=== PATIENT | female | born 1970 | race Caucasian/White ===

== ENCOUNTER → 2020-08-26 | Outpatient (CLI) | payer BC | END | disposition home or self-care (01) | LOC: LABWHC1 16:50 | PROVIDERS: ATTEND Family Medicine | DX: Z20.828 Contact with and (suspected) exposure to other viral communicable diseases (principal) | CPT/HCPCS: U0003; C9803 ==

== ENCOUNTER 2020-09-30 18:29 | Emergency (ER) | payer BC ==
[2020-09-30 18:36] VITALS: TEMP 98.4
--- NOTE | 2020-09-30 18:45 | ED ---
Wound/Laceration HPI - General Chief Complaint: Wound/Laceration Stated Complaint: Finger laceration Time Seen by Provider: 09/30/20 18:44 Source: patient Mode of arrival: ambulatory Limitations: no limitations - History of Present Illness Initial Comments: 49-year-old male presenting to emergency Department with a chief complaint of laceration. States this occurred about one hour prior to arrival she was cutting ham with a knife. Patient states she lacerated with a clean knife. She reports minimal pain. Has full range of motion of finger. Patient states her tetanus up-to-date. Denies numbness or tingling. - Related Data Home Medications Medication Instructions Recorded Confirmed No Known Home Medications 09/30/20 09/30/20 Allergies Allergy/AdvReac Type Severity Reaction Status Date / Time lidocaine Allergy Rash/Hives Verified 09/30/20 18:36 Review of Systems ROS Statement: Those systems with pertinent positive or pertinent negative responses have been documented in the HPI. ROS Other: All systems not noted in ROS Statement are negative. Past Medical History Past Medical History: No Reported History History of Any Multi-Drug Resistant Organisms: None Reported Past Surgical History: Orthopedic Surgery Past Psychological History: No Psychological Hx Reported Smoking Status: Never smoker Past Alcohol Use History: Occasional Past Drug Use History: None Reported General Exam Limitations: no limitations General appearance: alert, in no apparent distress Head exam: Present: atraumatic, normocephalic, normal inspection Eye exam: Present: normal appearance Pupils: Present: normal accommodation ENT exam: Present: normal exam Neck exam: Present: normal inspection, full ROM Respiratory exam: Present: normal lung sounds bilaterally. Absent: respiratory distress, wheezes Cardiovascular Exam: Present: regular rate, normal rhythm, normal heart sounds Extremities exam: Present: normal inspection (Small laceration on the left third digit. Measuring less than 3 mm. They're superficial), full ROM, normal capillary refill. Absent: tenderness, pedal edema, joint swelling Back exam: Present: normal inspection, full ROM. Absent: tenderness, CVA tenderness (R), CVA tenderness (L) Neurological exam: Present: alert, oriented X3, normal gait Psychiatric exam: Present: normal affect, normal mood Skin exam: Present: warm, dry, intact, normal color Course Vital Signs 09/30/20 09/30/20 18:33 19:22 Temperature 98.4 F Pulse Rate 117 H 102 H Respiratory 18 16 Rate Blood Pressure 167/99 151/96 O2 Sat by Pulse 97 100 Oximetry Medical Decision Making - Medical Decision Making 49-year-old female presenting to emergency department with laceration. Laceration site was very superficial and small. Steri-Strips were applied. Return parameters discussed with patient. Patient given laceration instructions. Tetanus was up-to-date. Disposition Clinical Impression: Laceration Disposition: HOME SELF-CARE Condition: Stable Instructions (If sedation given, give patient instructions): Laceration (DC) Additional Instructions: Follow wound care instructions. Return to emergency department if symptoms worsen. Is patient prescribed a controlled substance at d/c from ED?: No Referrals: Connor Plaza MD [Primary Care Provider] - 1-2 days Time of Disposition: 18:55
[2020-09-30] MEDS ORDERED: DIPH,PERTUS(ACELL)TETVAC-LF 0.5 ML VIAL IM ONE (18:54)
[2020-09-30 19:23] VITALS: BP 151/96; PULSE 102; RESP 16
== END 2020-09-30 19:24 | disposition home or self-care (01) ==
LOC: EC 18:29
DX: S61.213A Laceration without foreign body of left middle finger without damage to nail, initial encounter (principal); Z23 Encounter for immunization; Z88.4 Allergy status to anesthetic agent; W26.0XXA Contact with knife, initial encounter; Y93.G3 Activity, cooking and baking; Y92.000 Kitchen of unspecified non-institutional (private) residence as the place of occurrence of the external cause
CPT/HCPCS: 90471; 90715; 99282

== ENCOUNTER 2020-12-29 09:59 | Emergency (ER) | payer BC ==
[2020-12-29 10:26] VITALS: BP 164/111; PULSE 100; RESP 18; TEMP 98.2
[2020-12-29] MEDS ORDERED: TOPICAL SKIN ADHESIVE 1 EACH AMP TOPICAL ONE (10:46)
[2020-12-29] MEDS ORDERED: LIDOCAINE/EPINEPHR/TETRACAINE 5 ML BOTTLE TOPICAL ONE (10:46)
[2020-12-29] MEDS ORDERED: BACITRACIN OINT 1 EACH PACKET TOPICAL ONE (10:49)
--- NOTE | 2020-12-29 11:05 | ED ---
Wound/Laceration HPI - General Chief Complaint: Wound/Laceration Stated Complaint: Face Lac Time Seen by Provider: 12/29/20 10:33 Source: patient Mode of arrival: ambulatory Limitations: no limitations - History of Present Illness Initial Comments: Patient is a 50-year-old female presenting to the emergency Department with complaints of a laceration to her right cheek. Patient states she was trying to get a steel stake out of her garden about 2 hours prior to arrival and it slipped and hit the right side of her cheek. She states it did break her g lasses. She is up-to-date with her tetanus vaccine. Bleeding is controlled at this time, she is not on blood thinners. There are no further complaints at this time. - Related Data Home Medications Medication Instructions Recorded Confirmed No Known Home Medications 09/30/20 09/30/20 Allergies Allergy/AdvReac Type Severity Reaction Status Date / Time lidocaine Allergy Rash/Hives Verified 12/29/20 10:22 Review of Systems ROS Statement: Those systems with pertinent positive or pertinent negative responses have been documented in the HPI. ROS Other: All systems not noted in ROS Statement are negative. Past Medical History Past Medical History: No Reported History History of Any Multi-Drug Resistant Organisms: None Reported Past Surgical History: Orthopedic Surgery Past Psychological History: No Psychological Hx Reported Smoking Status: Never smoker Past Alcohol Use History: Occasional Past Drug Use History: None Reported General Exam - General Exam Comments Initial Comments: GENERAL: Patient is well-developed and well-nourished. Patient is nontoxic and in no acute distress. HEAD: Atraumatic, normocephalic. EYES: Pupils equal round and reactive to light, extraocular movements intact, sclera anicteric, conjunctiva are normal. Eyelids were unremarkable. ENT: Nares patent, oropharynx clear without exudates. Moist mucous membranes. NECK: Normal range of motion, supple without lymphadenopathy or JVD. LUNGS: Unlabored respirations. Breath sounds clear to auscultation bilaterally and equal. No wheezes rales or rhonchi. HEART: Regular rate and rhythm without murmurs, rubs or gallops. ABDOMEN: Soft, nontender, normoactive bowel sounds. No guarding, no rebound. No masses appreciated. : Deferred MUSCULOSKELETAL: Normal extremities with adequate strength and normal range of motion, no pitting or edema. No clubbing or cyanosis. NEUROLOGICAL: Patient is alert and oriented x 3. Motor and sensory are also intact. Cranial nerves II through XII grossly intact. Symmetrical smile. Normal speech, normal gait. PSYCH: Normal mood, normal affect. SKIN: Warm, Dry, normal turgor, no rashes. Patient has a 2 cm, backward C-shaped laceration on her right cheek, this is superficial, only the bottom portion is requiring sutures. Limitations: no limitations Course Vital Signs 12/29/20 10:22 Temperature 98.2 F Pulse Rate 100 Respiratory 18 Rate Blood Pressure 164/111 O2 Sat by Pulse 99 Oximetry Procedures - Laceration Laceration #1 Consent Obtained: verbal consent Indication: laceration Site: face (Right cheek) Size (cm): 2 Description: irregular (C-shaped) Depth: simple, single layer Pre-repair: irrigated extensively Type of Sutures: nylon Size of Sutures: 6-0 Number of Sutures: 2 Technique: simple, interrupted Patient Tolerated Procedure: well Additional Comments: Topical let was applied to the area prior to procedure. 2 sutures were placed on the bottom of the wound, the rest of the wound was closed topical skin adhesive. Patient tolerated procedure well. Medical Decision Making - Medical Decision Making Patient is a 50-year-old female here after injuring her right cheek pulling a steak out of her garden. She had a 2 cm seasick laceration on the right cheek. The bottom portion did require 2, 6-0 sutures. She tolerated procedure very well. Wound was closed with topical skin adhesive. We did discuss wound care. She'll have sutures removed in 5-7 days. Patient is stable for discharge. Patient is in agreement with this plan of care. Return parameters were discussed with the patient and they verbalized understanding. Case discussed with Dr. Guerra. Disposition Clinical Impression: Laceration of right cheek Disposition: HOME SELF-CARE Condition: Stable Instructions (If sedation given, give patient instructions): Care For Your Stitches (ED) Additional Instructions: Please return to the Emergency Department if symptoms worsen or any other concerns. May wash face as normal with soap and water. Stitches need to be removed in 5-7 days as discussed. Is patient prescribed a controlled substance at d/c from ED?: No Referrals: Connor Plaza MD [Primary Care Provider] - 1-2 days Time of Disposition: 11:36
== END 2020-12-29 11:45 | disposition home or self-care (01) ==
LOC: EC 09:59
DX: S01.411A Laceration without foreign body of right cheek and temporomandibular area, initial encounter (principal); W01.198A Fall on same level from slipping, tripping and stumbling with subsequent striking against other object, initial encounter
CPT/HCPCS: 12011; 99283

== ENCOUNTER → 2021-11-09 | Outpatient (CLI) | payer BC ==
--- NOTE | 2021-11-09 16:44 | US ---
EXAMINATION TYPE: US kidneys/renal and bladder DATE OF EXAM: 11/09/2021 COMPARISON: NONE CLINICAL HISTORY: 51-year-old female N28.9 DISORDER OF KIDNEY AND URETER, UNSPECIFIED. Patient states a kidney mass was found on a recent MRI at [facility] TECHNIQUE: Multiple sonographic images of the kidneys and bladder. FINDINGS: EXAM MEASUREMENTS: Right Kidney: 9.9 x 4.0 x 4.4 cm Left Kidney: 10.0 x 4.7 x 4.9 cm Right Kidney: wnl. No hydronephrosis. Left Kidney: 1.9 x 1.9 x 1.3cm cyst mid to lower pole there is no hydronephrosis. Bladder: wnl Bilateral Jets seen: yes IMPRESSION: Incidental benign 1.9 cm cyst mid to lower left kidney. No hydronephrosis on either side.
== END | disposition home or self-care (01) ==
LOC: RADUSWWP 14:53
PROVIDERS: ATTEND Family Medicine
DX: N28.9 Disorder of kidney and ureter, unspecified (principal)
CPT/HCPCS: 76770

== ENCOUNTER 2022-09-19 20:34 | Emergency (ER) | payer BC ==
[2022-09-19 20:42] VITALS: RESP 16
[2022-09-19 22:43] VITALS: TEMP 98.4
--- NOTE | 2022-09-19 22:45 | ED ---
Female Urogenital HPI - General Source: patient, RN notes reviewed Mode of arrival: ambulatory Limitations: no limitations - History of Present Illness Last Menstrual Period: 09/13/22 <Crystal Peñaloza - Last Filed: 09/20/22 00:03> <Bernard Whitman - Last Filed: 09/20/22 01:29> - General Chief complaint: Vaginal Bleeding Stated complaint: Vaginal bleeding Time Seen by Provider: 09/19/22 22:27 - History of Present Illness Initial comments: Patient is a 51-year-old female presenting to the emergency room with complaints of concerns regarding excessive vaginal bleeding of her current menstrual cycle which began on September 13 of this month with clot passage. She reports that over the past few months she has had cycles every couple of weeks and prior to that there was approximately 8 months where she did not have a cycle. She reports that over the last 2 days at her high points of bleeding she was going through approximately 3 pads in an hour but reports that this flow waxes and wanes. She denies any consistent bleeding of excess of 3 pads an hour. She is unsure of the process of her female relatives premenopausal process in denies any known history of uterine fibroids. She does follow with [facility] for annual visits and is due for her annual visit with Dr. Joselyn fraser. She reports that her last Pap smear was normal. She does complain of some abdominal cramping which she is taking Motrin for occasionally for pain in addition to her vaginal bleeding. She denies any other complaints or concerns at this time including any chest pain, shortness of breath, palpitations, abdominal pain not related to pelvic cramping, nausea, vomiting, weakness, fevers or chills. She denies any significant past medical history. (Crystal Peñaloza) - Related Data Home Medications Medication Instructions Recorded Confirmed No Known Home Medications 09/30/20 09/30/20 Allergies Allergy/AdvReac Type Severity Reaction Status Date / Time lidocaine Allergy Rash/Hives Verified 09/19/22 20:42 Review of Systems ROS Other: All systems not noted in ROS Statement are negative. <Crystal Peñaloza - Last Filed: 09/20/22 00:03> ROS Other: All systems not noted in ROS Statement are negative. <Bernard Whitman - Last Filed: 09/20/22 01:29> ROS Statement: Those systems with pertinent positive or pertinent negative responses have been documented in the HPI. Past Medical History Past Medical History: No Reported History History of Any Multi-Drug Resistant Organisms: None Reported Past Surgical History: Orthopedic Surgery Past Psychological History: No Psychological Hx Reported Smoking Status: Never smoker Past Alcohol Use History: Occasional Past Drug Use History: None Reported <Crystal Peñaloza - Last Filed: 09/20/22 00:03> General Exam Limitations: no limitations <Crystal Peñaloza - Last Filed: 09/20/22 00:03> - General Exam Comments Initial Comments: GENERAL: No acute distress, well developed, well nourished. HEENT: Normocephalic, atraumatic. Pupils equal, round, reactive to light. Moist mucous membranes. Full range of motion neck. LUNGS: Clear to auscultation, no adventitious sounds, no use of accessory muscles. HEART: Regular rate and rhythm without murmur, rub, or gallop. ABDOMEN: Normal bowel sounds. Soft, non-tender, non-distended. DERMATOLOGIC: Skin intact, without rashes or lesions noted. EXTREMITIES: No edema. No tenderness. Moves all extremities. NEUROLOGIC: Alert & oriented x 3. CN II-XII grossly intact. PSYCHIATRIC: Normal affect and behavior. (Crystal Peñaloza) Course Vital Signs 09/19/22 09/19/22 20:39 22:42 Temperature 98.0 F 98.4 F Pulse Rate 104 H 98 Respiratory 16 16 Rate Blood Pressure 156/94 O2 Sat by Pulse 98 99 Oximetry Medical Decision Making - Lab Data Result diagrams: 09/19/22 22:43 09/19/22 22:43 <Crystal Peñaloza - Last Filed: 09/20/22 00:03> - Lab Data Result diagrams: 09/19/22 22:43 09/19/22 22:43 <Bernard Whitman - Last Filed: 09/20/22 01:29> - Medical Decision Making Was pt. sent in by a medical professional or institution? @ No Did you speak to anyone other than the patient for history? @ No Did you review nursing and triage notes? @ Yes reviewed; symptoms consistent with nursing and triage note. Were old charts reviewed? @ -None Differential Diagnosis? @ -Differential Vaginal Bleeding: Spontaneous , threatened , molar , ectopic , bloody show, incompetent cervix, abruptioplacenta, placenta previa, uterine rupture, dysfunctional uterine bleeding, hemorrhage, uterine fibroids, this is not meant to be an all-inclusive list. EKG interpreted by me (3pts min.)? @ -None X-rays interpreted by me (1pt min.)? @ -None CT interpreted by me (1pt min.)? @ -None U/S interpreted by me (1pt. min.)? @ -Pending What testing was considered but not performed? (CT, X-rays, U/S, labs)? Why? @Pelvic exam deferred ultrasound ordered. What meds were considered but not given? Why? @ -Methoprogesterone considered and not given due to duration of bleeding, amount of bleeding and stable hemoglobin status. Did you discuss the management of the patient with other professionals? @ - No Did you reconcile home meds? @ - No Was smoking cessation discussed for >3mins.? @ -Not applicable Was critical care preformed (if so, how long)? @ - No Were there social determinants of health that impacted care today? How? (Homelessness, low income, unemployed, alcoholism, drug addiction, transportation, low edu. Level, literacy, decrease access to med. care, [facility], rehab)? @ -No Was there de-escalation of care discussed even if they declined? (Discuss DNR or withdrawal of care, Hospice)? @ -No What co-morbidities impacted this encounter? (DM, HTN, Smoking, COPD, CAD, Cancer, CVA, Hep., AIDS, mental health diagnosis, sleep apnea, morbid obesity)? @ -None Was patient admitted / discharged? @ -51-year-old female presenting to the emergency room with heavy menstrual cycle bleeding consistent with perimenopause she has had menstrual cycles approximately every 3 weeks for the last 3 months with heavier bleeding and clots at times prior to these events she had 8 months of no menstrual cycles. She is established with [facility] with no significant history of uterine fibroids. She is unsure of familial perimenopausal process. No severe bleeding correlation to intercourse or concerns for STDs. Will obtain CBC, BMP along with urine and urinalysis. No knowledge regarding perimenopausal process and her menstrual cycles is a concern consequently a vaginal ultrasound will be completed for further evaluation will defer pelvic exam. No indication for further diagnostic imaging or laboratory studies. CBC unremarkable. BMP stable. Not . No indication for transfusion or IV hydration. Awaiting urinalysis and pelvic ultrasound. Case transferred to Dr. Whitman for ultrasound and urinalysis result along with dispo. Undiagnosed new problem with uncertain prognosis? @ -None Drug Therapy requiring intensive monitoring for toxicity (Heparin, Nitro, Insulin, Cardizem)? @ -No Were any procedures done? @ -No Diagnosis/symptom? @ -Menometrorhagia Acute, or Chronic, or Acute on Chronic? @ -Acute Uncomplicated (without systemic symptoms) or Complicated (systemic symptoms)? @ -Uncomplicated Side effects of treatment? @ -None Exacerbation, Progression, or Severe Exacerbation] @ -No Poses a threat to life or bodily function? @ -No Case discussed with Dr. Whitman. (Crystal Peñaloza) I did assume care of the patient pending the results of the ultrasound. Ultrasound was obtained and was interpreted by myself showing no abnormal pathology. The urinalysis did show blood and was likely not infected at this time as the patient had large amount of blood. The patient continued to remain stable with a likely diagnosis of dysmenorrhea. The patient was told to follow- up with her [facility] as previously scheduled in 2 weeks. The patient was advised report back to the emergency department if she any worsening shortness of breath, lightheadedness or bleeding. The patient was agreeable to this however questions were answered. The patient was discharged home in stable condition with her . (Bernard Whitman) - Lab Data Lab Results 09/19/22 09/19/22 09/19/22 Range/Units 00:15 22:43 22:43 WBC 6.5 (3.8-10.6) k/uL RBC 4.14 (3.80-5.40) m/uL Hgb 13.8 (11.4-16.0) gm/dL Hct 39.7 (34.0-46.0) % MCV 96.0 (80.0-100.0) fL MCH 33.4 (25.0-35.0) pg MCHC 34.8 (31.0-37.0) g/dL RDW 11.7 (11.5-15.5) % Plt Count 222 (150-450) k/uL MPV 8.7 Neutrophils % 54 % Lymphocytes % 35 % Monocytes % 6 % Eosinophils % 3 % Basophils % 1 % Neutrophils # 3.5 (1.3-7.7) k/uL Lymphocytes # 2.3 (1.0-4.8) k/uL Monocytes # 0.4 (0-1.0) k/uL Eosinophils # 0.2 (0-0.7) k/uL Basophils # 0.1 (0-0.2) k/uL Sodium 140 (137-145) mmol/L Potassium 3.8 (3.5-5.1) mmol/L Chloride 107 (98-107) mmol/L Carbon Dioxide 27 (22-30) mmol/L Anion Gap 6 mmol/L BUN 19 H (7-17) mg/dL Creatinine 0.73 (0.52-1.04) mg/dL Est GFR (CKD-EPI)AfAm >90 (>60 ml/min/1.73 sqM) Est GFR (CKD-EPI)NonAf >90 (>60 ml/min/1.73 sqM) Glucose 96 (74-99) mg/dL Calcium 9.2 (8.4-10.2) mg/dL Urine Color Light Red Urine Appearance Clear (Clear) Urine pH 5.5 (5.0-8.0) Ur Specific Vance 1.020 (1.001-1.035) Urine Protein Trace H (Negative) Urine Glucose (UA) Negative (Negative) Urine Ketones Negative (Negative) Urine Blood Large H (Negative) Urine Nitrite Negative (Negative) Urine Bilirubin Negative (Negative) Urine Urobilinogen <2.0 (<2.0) mg/dL Ur Leukocyte Esterase Trace H (Negative) Urine RBC >182 H (0-5) /hpf Urine WBC 170 H (0-5) /hpf Urine Mucus Rare H (None) /hpf Urine HCG, Qual (Not Detectd) 09/19/22 Range/Units 22:47 WBC (3.8-10.6) k/uL RBC (3.80-5.40) m/uL Hgb (11.4-16.0) gm/dL Hct (34.0-46.0) % MCV (80.0-100.0) fL MCH (25.0-35.0) pg MCHC (31.0-37.0) g/dL RDW (11.5-15.5) % Plt Count (150-450) k/uL MPV Neutrophils % % Lymphocytes % % Monocytes % % Eosinophils % % Basophils % % Neutrophils # (1.3-7.7) k/uL Lymphocytes # (1.0-4.8) k/uL Monocytes # (0-1.0) k/uL Eosinophils # (0-0.7) k/uL Basophils # (0-0.2) k/uL Sodium (137-145) mmol/L Potassium (3.5-5.1) mmol/L Chloride (98-107) mmol/L Carbon Dioxide (22-30) mmol/L Anion Gap mmol/L BUN (7-17) mg/dL Creatinine (0.52-1.04) mg/dL Est GFR (CKD-EPI)AfAm (>60 ml/min/1.73 sqM) Est GFR (CKD-EPI)NonAf (>60 ml/min/1.73 sqM) Glucose (74-99) mg/dL Calcium (8.4-10.2) mg/dL Urine Color Urine Appearance (Clear) Urine pH (5.0-8.0) Ur Specific Vance (1.001-1.035) Urine Protein (Negative) Urine Glucose (UA) (Negative) Urine Ketones (Negative) Urine Blood (Negative) Urine Nitrite (Negative) Urine Bilirubin (Negative) Urine Urobilinogen (<2.0) mg/dL Ur Leukocyte Esterase (Negative) Urine RBC (0-5) /hpf Urine WBC (0-5) /hpf Urine Mucus (None) /hpf Urine HCG, Qual Not Detected (Not Detectd) Disposition <Crystal Peñaloza - Last Filed: 09/20/22 00:03> Is patient prescribed a controlled substance at d/c from ED?: No Time of Disposition: 01:00 <Bernard Whitman - Last Filed: 09/20/22 01:29> Clinical Impression: Dysfunctional uterine bleeding Disposition: HOME SELF-CARE Condition: Stable Instructions (If sedation given, give patient instructions): Dysmenorrhea (ED) Referrals: Connor Plaza MD [Primary Care Provider] - 1-2 days
[2022-09-19 22:56] LABS: Basophils # (A) 0.1 k/uL (0-0.2); Basophils % (A) 1 %; Eosinophils # (A) 0.2 k/uL (0-0.7); Eosinophils % (A) 3 %; HCT 39.7 % (34.0-46.0); HGB 13.8 gm/dL (11.4-16.0); Lymphocytes # (A) 2.3 k/uL (1.0-4.8); Lymphocytes % (A) 35 %; MCH 33.4 pg (25.0-35.0); MCHC 34.8 g/dL (31.0-37.0); Mean Platelet Volume 8.7; Monocytes # (A) 0.4 k/uL (0-1.0); Monocytes % (A) 6 %; Neutrophils # (A) 3.5 k/uL (1.3-7.7); Neutrophils % (A) 54 %; Platelet Count 222 k/uL (150-450); RBC 4.14 m/uL (3.80-5.40); RDW 11.7 % (11.5-15.5); WBC 6.5 k/uL (3.8-10.6)
[2022-09-19 23:05] LABS: African American GFR (CKD) >90 (>60 ml/min/1.73 sqM); Anion Gap 6 mmol/L; Blood Urea Nitrogen 19 mg/dL (7-17); Calcium 9.2 mg/dL (8.4-10.2); Carbon Dioxide 27 mmol/L (22-30); Chloride 107 mmol/L (98-107); Glucose 96 mg/dL (74-99); Non-African American GFR(CKD) >90 (>60 ml/min/1.73 sqM); Potassium 3.8 mmol/L (3.5-5.1); Sodium 140 mmol/L (137-145)
--- NOTE | 2022-09-20 00:23 | US ---
EXAMINATION TYPE: US pelvic complete DATE OF EXAM: 09/20/2022 COMPARISON: NONE CLINICAL HISTORY: Abnormal uterine bleeding. Heavy vaginal bleeding x 6 days. TECHNIQUE: . Transabdominal sonographic images of the pelvis were acquired. Date of LMP: 09/13/22 EXAM MEASUREMENTS: Uterus: 9.8 x 5.3 x 4.7 cm Endometrial Stripe: 1.0 cm Right Ovary: 3.3 x 5.6 x 2.4 cm Left Ovary: 2.5 x 1.8 x 1.4 cm 1. Uterus: Anteverted Hypoechoic area seen on the right side of uterus measuring 2.6 x 2.0 x .17cm , probable fibroid 2. Endometrium: wnl 3. Right Ovary: Cyst seen measuring 2.6 x 2.1 x 1.6cm 4. Left Ovary: wnl Spectral, color and waveform doppler imaging shows good arterial and venous flow within the ovaries ; there is no evidence for ovarian torsion. 5. Bilateral Adnexa: wnl 6. Posterior cul-de-sac: wnl IMPRESSION: There is simple right ovarian cyst. No solid adnexal mass. No evidence of ovarian torsion. No endomet rial mass. There is likely 2.6 x 1.7 cm posterior wall uterine fibroid.
[2022-09-20 00:50] LABS: Appearance,Urine Clear (Clear); Bilirubin,Urine Negative (Negative); Blood,Urine Large (Negative); Color,Urine Light Red; Glucose,Urine (UA) Negative (Negative); Ketones,Urine Negative (Negative); Leukocyte Esterase,Urine Trace (Negative); Mucus,Urine Rare /hpf; Nitrite,Urine Negative (Negative); PH, Urine 5.5 (5.0-8.0); Protein,Urine Trace (Negative); RBC,Urine >182 /hpf (0-5); Urobilinogen,Urine <2.0 mg/dL (<2.0); WBC,Urine 170 /hpf (0-5)
[2022-09-20 01:43] VITALS: BP 121/80; PULSE 78
== END 2022-09-20 01:43 | disposition home or self-care (01) ==
LOC: EC 20:34
DX: N93.8 Other specified abnormal uterine and vaginal bleeding (principal); Z88.4 Allergy status to anesthetic agent
CPT/HCPCS: 36415; 76856; 80048; 81001; 81025; 85025; 87086; 93975; 99284

== ENCOUNTER → 2022-10-17 | Outpatient (CLI) | payer BC ==
[2022-10-17 19:27] LABS: Basophils # (A) 0.04 X 10*3/uL (0.00-0.10); Basophils % (A) 0.8 %; Eosinophils # (A) 0.06 X 10*3/uL (0.04-0.35); Eosinophils % (A) 1.1 %; HCT 43.9 % (37.2-46.3); HGB 14.6 g/dL (12.0-15.0); Immature Grans, Automated 0.2 %; Lymphocytes # (A) 1.62 X 10*3/uL (0.90-5.00); MCH 32.4 pg (27.0-32.0); MCHC 33.3 g/dL (32.0-37.0); MCV 97.3 fL (80.0-97.0); Mean Platelet Volume 11.7 fL (9.5-12.2); Monocytes # (A) 0.52 X 10*3/uL (0.20-1.00); NRBC Per 100 WBC 0 /100 WBCS (0.0-0.0); Neutrophils # (A) 2.97 X 10*3/uL (1.80-7.70); Neutrophils % (A) 56.9 %; Platelet Count 242 X 10*3/uL (140-440); RBC 4.51 X 10*6/uL (4.10-5.20); RDW 11.8 % (11.5-14.5); WBC 5.22 X 10*3/uL (4.50-10.00)
== END | disposition home or self-care (01) ==
LOC: LABPAT 10:55
PROVIDERS: ATTEND Obstetrics & Gynecology
DX: Z01.818 Encounter for other preprocedural examination (principal); I44.0 Atrioventricular block, first degree; R94.31 Abnormal electrocardiogram [ECG] [EKG]
CPT/HCPCS: 36415; 85025; 93005

== ENCOUNTER → 2024-12-23 | Outpatient (CLI) | payer BC ==
--- NOTE | 2024-12-23 14:10 | US ---
EXAMINATION TYPE: US extremity nonvasc mass LT DATE OF EXAM: 12/23/2024 COMPARISON: NONE CLINICAL INDICATION: Female, 54 years old with history of R22.32 SWELLING, MASS AND LUMP, LUE; lump s stephanie 2005, recently getting bigger. Had a bone out of place and put back with two screws. TECHNIQUE: Grayscale and color Doppler imaging of the left forearm FINDINGS: Heterogenous hyperechoic area 2.2 x 1.0 x 2.2 cm IMPRESSION: Subcutaneous hyperechoic mass favored represent lipid containing lesion such as a lipoma. This can be confirmed with MRI. [facility], , 12/23/2024 2:08 PM
--- NOTE | 2024-12-23 14:30 | MM ---
Reason for Exam: Screening (asymptomatic). Last mammogram was performed 2 year(s) and 8 month(s) ago. Patient History: Menarche at age 13. First Full-Term at age 24. Postmenopausal. Patient has history of breast feeding. Patient used Hormonal Contraceptives for 1 year. Maternal grandmother had breast cancer, age 33. Risk Values: Courtney 5 year model risk: 1.2%. NCI Lifetime model risk: 8.1%. Prior Study Comparison: 02/29/2016 Bilateral Screening Mammogram, [facility]. 07/24/2017 Bilateral Screening Mammogram, [facility]. 05/11/2022 Bilateral MG 3D screening mammo w/cad, [facility]. Tissue Density: There are scattered areas of fibroglandular density. Findings: Analyzed By CAD. There is no suspicious group of microcalcifications or new suspicious mass in either breast. Overall Assessment: Benign, BI-RAD 2 Management: Screening Mammogram of both breasts in 1 year. . Patient should continue monthly self-breast exams. A clinical breast exam by your physician is recommended on an annual basis. This exam should not preclude additional follow-up of suspicious palpable abnormalities. Note on Courtney scores and lifetime risk: 1. A Courtney score greater than 3% is considered moderate risk. If this is the case, consider specialist referral to assess eligibility for a risk reducing agent. 2. If overall lifetime risk for the development of breast cancer is 20% or higher, the patient may qualify for future screening with alternating mammogram and breast MRI. [facility], , 12/23/2024 2:27 PM. Electronically signed and approved by: Alessandro Bryan M.D. [facility]iolog[facility]
== END | disposition home or self-care (01) ==
LOC: RADUSWWP 13:43
PROVIDERS: ATTEND Family Medicine
DX: Z12.31 Encounter for screening mammogram for malignant neoplasm of breast (principal); R92.323 Mammographic fibroglandular density, bilateral breasts; Z78.0 Asymptomatic menopausal state; Z80.3 Family history of malignant neoplasm of breast; Z92.0 Personal history of contraception
CPT/HCPCS: 77063; 77067